=== PATIENT | male | born 1980 | race Caucasian/White ===

== ENCOUNTER → 2023-11-22 14:13 | Outpatient (REF) | payer BC, SELFPAY | LOC: HWRAD 14:13 | PROVIDERS: ATTENDING PHYSICIAN Physician Assistant; FAMILY PHYSICIAN Internal Medicine | DX: R51.9 Headache, unspecified (principal); H53.9 Unspecified visual disturbance | CPT/HCPCS: 70450 ==

== ENCOUNTER → 2025-04-01 13:50 | Outpatient (REF) | payer SELFPAY | LOC: HWRAD 13:50 | PROVIDERS: ATTENDING PHYSICIAN Internal Medicine; FAMILY PHYSICIAN Internal Medicine | DX: I10 Essential (primary) hypertension (principal) | CPT/HCPCS: 75571 ==